=== PATIENT | male | born 1945 | race Two or more races ===

== ENCOUNTER → 2021-08-03 | Day surgery (SDC) | payer MEDICAID ==
[~2021-08-03] VITALS: Ht 172.7 cm; Wt 93.0 kg
[~2021-08-03] MED LIST: ACETAMINOPHEN 325MG TABLET PO PRN; ASPI-1497 MT; ASPIRIN/SOD BICARB/CITRIC ACID 324MG TAB EFF ONE; ATOR-2 MT; ATROPINE SULFATE 1MG/10ML SYR IV PRN; CLOP-31 MT; FENTANYL CITRATE/PF 50MCG/ML 2ML VIAL ONE; FINA5TAB11 MT; FLUO20CA39 PO; FURO20TA4 MT; GLIP5TAB12 MT; HEPARIN SODIUM 1,000 UNIT/1ML VIAL IV ONE; IODIXANOL 320MG/ML 100 ML BOTTLE IV ONE; ISOS60TA76 PO; LIDOCAINE HCL 1% 20ML VIAL (Pyxis) INJ ONE; LOSA50TA41 PO; MECL-159 MT; METO-385 MT; MIDAZOLAM HCL 2 MG/2 ML VIAL ONE; MORPHINE SULFATE 2 MG/ML CPJ (NOT FOR IM USE) IV PRN; NICARDIPINE 100MCG/ML 10ML VIAL (CATH LAB) IV ONE; NITROGLYCERIN 50MCG/ML 10ML VIAL (CATH LAB) IV ONE; ONDANSETRON HCL 4MG/2ML INJ IV PRN; PROP50TA3 PO; TAMS-11 MT
== END | disposition home or self-care (01) ==
LOC: CCL 06:30
PROVIDERS: ATTEND Specialist
DX: I25.10 Atherosclerotic heart disease of native coronary artery without angina pectoris (principal); I10 Essential (primary) hypertension; E78.5 Hyperlipidemia, unspecified; E11.9 Type 2 diabetes mellitus without complications; Z79.82 Long term (current) use of aspirin; Z79.899 Other long term (current) drug therapy; Z98.890 Other specified postprocedural states
CPT/HCPCS: 93455; 99152; 99153; C1769; C1887; J1644; J2250; J3010; J3490; Q9967; G0500